=== PATIENT | male | born 1980 | race Caucasian/White ===

== ENCOUNTER 2022-04-29 17:04 | Emergency (ER) | payer OTHER ==
[~2022-04-29] VITALS: Ht 172.7 cm; Wt 113.6 kg
[2022-04-29 19:45] VITALS: BP 146/97
[2022-04-29] MEDS ORDERED: NAPROXEN500 MG PO (19:46)
== END 2022-04-29 19:52 | disposition home or self-care (01) | DRG 552 ==
LOC: ED 17:04
DX: S33.5XXA Sprain of ligaments of lumbar spine, initial encounter (principal); V49.40XA Driver injured in collision with unspecified motor vehicles in traffic accident, initial encounter